=== PATIENT | female | born 1995 | race Caucasian/White ===

== ENCOUNTER 2019-03-29 19:19 | Emergency (ER) | payer OTHER ==
[~2019-03-29] VITALS: Ht 160 cm; Wt 73.6 kg
[~2019-03-29 19:19] MED LIST: BIRTH CONTROL
--- NOTE | 2019-03-29 19:35 | NUR ---
400mg motrin at 1800 today
--- NOTE | 2019-03-29 20:05 | NUR ---
PA AT BEDSIDE TO ASSESS PT
--- NOTE | 2019-03-29 20:05 | NUR ---
23Y F THAT COMES IN W/ C/O COUGH X2DAYS UPPER BACK PAIN AND RIGHT NECK PAIN SINCE LAST NIGHT. PT DENIES RECENT TRAUMA. PT STS NO FLU SHOT YET. CONNECTED TO MONITORING CALL LIGHT IN REACH. SHAWN VIEIRA
[2019-03-29 20:52] LABS: RAPID INFLUENZA A Negative (Negative); RAPID INFLUENZA B Negative (Negative)
--- NOTE | 2019-03-29 20:55 | NUR ---
AT BEDSIDE TO REASSESS PT AND DISCUSS POC
[2019-03-29 21:12] VITALS: BP 114/70
== END 2019-03-29 21:24 | disposition home or self-care (01) ==
LOC: ED 21:22
DX: B34.9 Viral infection, unspecified (principal); G43.909 Migraine, unspecified, not intractable, without status migrainosus; Z90.89 Acquired absence of other organs; Z88.8 Allergy status to other drugs, medicaments and biological substances
CPT/HCPCS: 87400; 99283